=== PATIENT | male | born 1955 | race Caucasian/White ===

== ENCOUNTER 2017-01-26 17:23 | Emergency (ER) | payer MEDICARE ==
[2017-01-26 17:53] LABS: Bilirubin Negative (Negative); Blood, Urine Negative (Negative); Glucose, Urine (Dipstick) Negative (Negative); Ketone, Urine Negative (Negative); Nitrite Negative (Negative); Protein, Urine (Dipstick) Negative (Neg-Trace); Urobilinogen 0.2 mg/dL (0.2-1.0)
[2017-01-26 18:04] LABS: Amphetamine Not Detected (NotDetected); Methadone Not Detected (NotDetected); Methamphetamine Not Detected (NotDetected)
[2017-01-26 18:20] LABS: #Basophils 0.1 thou/uL (0.0-0.2); #Eosinphils 0.3 thou/uL (0.0-0.7); #Lymphocytes 4.2 thou/uL (1.20-3.40); #Neutrophils 4.4 thou/uL (1.40-6.50); %Basophils 0.7 % (0.0-1.0); %Eosinophils 2.6 % (0.0-10.0); %Lymphocytes 42.3 % (21.0-51.0); %Monocytes 10.1 % (0.0-10.0); Hematocrit 40.2 % (42.0-52.0); Mean Platelet Volume 7.2 fL (7.4-10.4); Red Blood Cell (RBC) Count 4.27 mill/uL (4.70-6.10); White Blood Cell (WBC) Count 9.9 thou/uL (4.8-10.8)
[2017-01-26 18:47] LABS: ALT (SGPT) 24 U/L (8-55); AST (SGOT) 18 U/L (5-34); Alkaline Phosphatase 66 U/L (40-150); Anion Gap 11 mmol/L (10-20); BUN (Urea Nitrogen) 9 mg/dL (8.4-25.7); Bilirubin, Total 0.3 mg/dL (0.2-1.2); Calc. Creatinine Clearance 0 mL/min (70-130); Carbon Dioxide 22 mmol/L (22-29); Chloride 109 mmol/L (98-107); Estimated GFR-MDRD 62; Globulin 3.5 g/dL (2.4-3.5); Protein, Total 7.4 g/dL (6.0-8.3)
[2017-01-26 19:48] LABS: Acetaminophen Less than 6.0 mcg/mL (10.0-30.0); Salicylate Less than 8.0 mg/dL (15.0-30.0)
[2017-01-26] MEDS ORDERED: traZODone HCl 50 MG TAB PO SCH (21:00)
[2017-01-26] MEDS ORDERED: risperiDONE 3 MG TAB PO SCH (21:00)
[2017-01-26] MEDS ORDERED: traMADol HCl 50 MG TAB PO PRN (22:22)
[2017-01-26] MEDS ORDERED: Loratadine 10 MG TAB PO SCH (22:30)
[2017-01-26] MEDS ORDERED: busPIRone HCl 10 MG TAB PO SCH (22:30)
[2017-01-26] MEDS ORDERED: clonazePAM 1 MG TAB PO SCH (22:30)
[2017-01-26] MEDS ORDERED: lamoTRIgine 25 MG TAB PO SCH (22:30)
[2017-01-26] MEDS ORDERED: traMADol HCl 50 MG TAB PO SCH (22:30)
[2017-01-26] MEDS ORDERED: hydrOXYzine Pamoate 25 mg Capsule PO PRN (22:36)
[2017-01-26] MEDS ORDERED: traZODone HCl 50 MG TAB PO PRN (22:38)
[2017-01-26] MEDS ORDERED: Acetaminophen 325 MG TAB PO PRN (22:39)
[2017-01-26] MEDS ORDERED: Benztropine 1 MG TAB PO SCH (22:45)
[2017-01-27] MEDS ORDERED: lamoTRIgine 25 MG TAB PO SCH (09:00)
[2017-01-27] MEDS ORDERED: busPIRone HCl 10 MG TAB PO SCH (09:00)
[2017-01-27] MEDS ORDERED: Benztropine 1 MG TAB PO SCH (09:00)
[2017-01-27] MEDS ORDERED: Loratadine 10 MG TAB PO SCH (09:00)
[2017-01-27] MEDS ORDERED: clonazePAM 1 MG TAB PO SCH (09:00)
[2017-01-27] MEDS ORDERED: risperiDONE 1 MG TAB PO SCH (09:00)
[2017-01-27] MEDS ORDERED: OLANZapine 5 MG TAB PO SCH (09:00)
--- NOTE | 2017-02-23 15:29 | EKG ---
Test Reason : Blood Pressure : / mmHG Vent. Rate : 074 BPM Atrial Rate : 074 BPM P-R Int : 146 ms QRS Dur : 088 ms QT Int : 402 ms P-R-T Axes : 052 016 021 degrees QTc Int : 446 ms Normal sinus rhythm Normal ECG Confirmed by ALEXIS ROSARIO D.O. ([id number]), editorial writer KANIKA CASTAÑEDA ([id number]) on 02/23/2017 3:28:41 PM Referred By: PARRIS ROSARIO Confirmed By:ALEXIS ROSARIO D.O.
== END 2017-01-27 05:17 ==
LOC: ERS 17:23 → EDBD 17:23 → ERS 01-27 05:17
DX: F30.9 Manic episode, unspecified (principal); J45.909 Unspecified asthma, uncomplicated; F25.9 Schizoaffective disorder, unspecified; Z79.899 Other long term (current) drug therapy
CPT/HCPCS: 36415; 80053; 80306; 80307; 81003; 85025; 93005

== ENCOUNTER 2022-10-11 01:13 | Emergency (ER) | payer MEDICARE, OTHER ==
[2022-10-11 21:37] LABS: SARS-CoV-2 NAA Rapid Test Not Detected (NotDetected)
== END 2022-10-11 21:15 ==
LOC: ERS 01:13
DX: R45.851 Suicidal ideations (principal); Z20.822 Contact with and (suspected) exposure to COVID-19
CPT/HCPCS: 99285; U0002